=== PATIENT | female | born 1960 | race Caucasian/White ===

== ENCOUNTER 2017-02-20 14:00 | Emergency (ER) | payer OTHER ==
[2011-05-16 23:49] VITALS: BMI 27.5
== END 2017-02-20 16:05 | disposition home or self-care (01) ==
LOC: D.ER 14:00
DX: M54.5 Low back pain (principal); S39.012A Strain of muscle, fascia and tendon of lower back, initial encounter; M62.830 Muscle spasm of back

== ENCOUNTER 2017-08-30 11:36 | Emergency (ER) | payer OTHER ==
[2011-05-16 23:49] VITALS: BMI 27.5
== END 2017-08-30 14:25 | disposition home or self-care (01) ==
LOC: D.ER 11:36
DX: J01.90 Acute sinusitis, unspecified (principal); R51 Headache; M79.1 Myalgia; F17.200 Nicotine dependence, unspecified, uncomplicated

== ENCOUNTER 2017-10-25 08:16 | Emergency (ER) | payer OTHER ==
[2011-05-16 23:49] VITALS: BMI 27.5
[2017-10-25 08:43] LABS: BASOPHILS 0.6 % (0-2); EOSINOPHILS 3.2 % (0-7); HEMATOCRIT 44.1 % (36.0-48.0); HEMOGLOBIN 15.8 g/dL (12-16); IMMATURE GRANULOCYTES 0.2 % (0-5); LYMPHOCYTES 33.5 % (15-50); MCH 32.5 pg (26.0-34.0); MCHC 35.8 g/dL (31.0-37.0); MCV 90.7 fL (80.0-100.0); MEAN PLATELET VOLUME 10.4 fL (7.4-10.4); MONOCYTES 7.6 % (2-11); NEUTROPHILS 54.9 % (40-80); PLATELET COUNT 174 10x3/uL (130-400); RBC 4.86 10x6/uL (4.00-5.40); RDW 12.2 % (11.5-14.5); WBC 5.3 10x3/uL (4.8-10.8)
[2017-10-25 09:02] LABS: ALBUMIN 4.2 g/dL (3.4-5.0); ANION GAP 12.3 mmol/L (8-16); BILIRUBIN - TOTAL 0.81 mg/dL (0.2-1.3); CALCIUM 9.5 mg/dL (8.5-10.1); CARBON DIOXIDE 27.1 mmol/L (21.0-32.0); POTASSIUM - SERUM 4.4 mmol/L (3.5-5.1); PROTEIN - SERUM 7.7 g/dL (6.4-8.2)
[2017-10-25 09:13] LABS: APPEARANCE CLEAR (CLEAR); BILIRUBIN NEGATIVE (NEGATIVE); COLOR YELLOW (YELLOW); GLUCOSE NEGATIVE (NEGATIVE); KETONE NEGATIVE (NEGATIVE); NITRITE NEGATIVE (NEGATIVE); PROTEIN NEGATIVE (NEGATIVE); UROBILINOGEN NORMAL (NORMAL)
[2017-10-25 09:16] LABS: BACTERIA FEW /hpf (NONE SEEN); EPITHELIAL CELLS 0-5 /hpf (0-5); WHITE CELLS - URINE OCC /hpf (0-5)
== END 2017-10-25 11:15 | disposition home or self-care (01) ==
LOC: D.ER 08:16
PROVIDERS: Family Medicine
DX: S39.012A Strain of muscle, fascia and tendon of lower back, initial encounter (principal); X58.XXXA Exposure to other specified factors, initial encounter; Y93.89 Activity, other specified; Y92.019 Unspecified place in single-family (private) house as the place of occurrence of the external cause; M54.5 Low back pain; N39.0 Urinary tract infection, site not specified; F17.200 Nicotine dependence, unspecified, uncomplicated

== ENCOUNTER 2017-12-31 08:28 | Emergency (ER) | payer OTHER ==
[2011-05-16 23:49] VITALS: BMI 27.5
== END 2017-12-31 10:00 | disposition home or self-care (01) ==
LOC: D.ER 08:28
DX: S52.92XA Unspecified fracture of left forearm, initial encounter for closed fracture (principal); Y04.2XXA Assault by strike against or bumped into by another person, initial encounter; Y93.89 Activity, other specified; Y92.019 Unspecified place in single-family (private) house as the place of occurrence of the external cause; F17.200 Nicotine dependence, unspecified, uncomplicated

== ENCOUNTER 2018-03-28 11:40 | Emergency (ER) | payer OTHER ==
[~2018-03-28] VITALS: Ht 162.6 cm; Wt 63.6 kg
[2018-03-28 11:54] VITALS: Ht 162.6 cm; Wt 63.6 kg
[2018-03-28] MEDS ORDERED: ACETAMINOPHEN325 MG PO (11:57)
[2018-03-28] MEDS ORDERED: PREDNISONE20 MG PO (13:57)
[2018-03-28] MEDS ORDERED: TORADOL10 MG PO (13:57)
[2018-03-28] MEDS ORDERED: NEURONTIN 300300 MG PO (13:57)
[2018-03-28 15:02] VITALS: BP 151/94
== END 2018-03-28 15:03 | disposition home or self-care (01) ==
LOC: D.ER 11:40
DX: M54.16 Radiculopathy, lumbar region (principal); K21.9 Gastro-esophageal reflux disease without esophagitis; F17.200 Nicotine dependence, unspecified, uncomplicated